=== PATIENT | female | born 1955 ===

== ENCOUNTER 2017-10-18 17:54 | Emergency (ER) | payer OTHER ==
[2017-10-18 18:03] VITALS: BP 158/65; PULSE 64; RESP 16; TEMP 97.8; O2SAT 98
--- NOTE | 2017-10-18 18:27 | ED PDOC ---
HPI: Abdomen Time Seen by Provider: 10/18/17 18:12 Chief Complaint (Nursing): Abdominal Pain Chief Complaint (Provider): Flank Pain History Per: Patient Additional Complaint(s): Patient is a 62 yo female,denies any PMH, c.o right flank pain x 3 days. Pt denies N/V/D. Pt denies medicating for pain at home. No urinary complaints. Past Medical History Reviewed: Nursing Documentation, Vital Signs Vital Signs: Last Vital Signs Temp 97.8 F 10/18/17 18:00 Pulse 64 10/18/17 18:00 Resp 16 10/18/17 18:00 BP 158/65 H 10/18/17 18:00 Pulse Ox 98 10/18/17 18:27 - Medical History PMH: No Chronic Diseases - Surgical History Surgical History: No Surg Hx - Family History Family History: States: No Known Family Hx - Living Arrangements Living Arrangements: With Family - Social History Current smoker - smoking cessation education provided: No Alcohol: None Drugs: Denies - Home Medications Home Medications: Ambulatory Orders Medication Instructions Recorded Cyclobenzaprine [Cyclobenzaprine 10 mg PO TID #20 tab 10/18/17 HCl] Ibuprofen [Motrin] 600 mg PO Q6 #20 tab 10/18/17 Sulfamethoxazole/Trimethoprim 1 tab PO BID 5 Days tab 10/18/17 [Bactrim DS 800 mg-160 mg] - Allergies Allergies/Adverse Reactions: Allergies Allergy/AdvReac Type Severity Reaction Status Date / Time No Known Allergies Allergy Verified 10/18/17 18:02 Review of Systems ROS Statement: Except As Marked, All Systems Reviewed And Found Negative Gastrointestinal: Positive for: Abdominal Pain Physical Exam - Reviewed Nursing Documentation Reviewed: Yes Vital Signs Reviewed: Yes - Physical Exam Appears: Positive for: Well, Non-toxic, No Acute Distress Head Exam: Positive for: ATRAUMATIC, NORMAL INSPECTION, NORMOCEPHALIC Skin: Positive for: Normal Color, Warm, DRY Eye Exam: Positive for: EOMI, Normal appearance, PERRL ENT: Positive for: Normal ENT Inspection Neck: Positive for: Normal, Painless ROM Cardiovascular/Chest: Positive for: Regular Rate, Rhythm Respiratory: Positive for: CNT, Normal Breath Sounds Gastrointestinal/Abdominal: Positive for: Normal Exam, Bowel Sounds, Soft. Negative for: Tenderness Back: Positive for: Normal Inspection, Other (LS paraspinal tenderness). Negative for: L CVA Tenderness, R CVA Tenderness Extremity: Positive for: Normal ROM Neurologic/Psych: Positive for: Alert, Oriented - ECG O2 Sat by Pulse Oximetry: 98 Medical Decision Making Medical Decision Making: Dip (+) blood and leuks Pt medicated with Motrin and Flexeril PO Pt reports feeling improved on re-eval. Stable for discharge Disposition - Clinical Impression Clinical Impression: Back pain - Patient ED Disposition Is Patient to be Admitted: No - Disposition Disposition: Routine/Home Disposition Time: 23:46 Condition: STABLE Prescriptions: Cyclobenzaprine [Cyclobenzaprine HCl] 10 mg PO TID #20 tab Ibuprofen [Motrin] 600 mg PO Q6 #20 tab Sulfamethoxazole/Trimethoprim [Bactrim DS 800 mg-160 mg] 1 tab PO BID 5 Days tab Instructions: Acute Low Back Pain (ED) Forms: [facility] (Lebanese)
[2017-10-18 19:34] LABS: RBC URINE 3 /hpf (0-3); URINE BILIRUBIN NEGATIVE (NEGATIVE); URINE BLOOD SMALL (NEGATIVE); URINE COLOR YELLOW (YELLOW); URINE GLUCOSE (UA) NEG (Normal); URINE KETONE NEGATIVE (NEGATIVE); URINE LEUKOCYTE ESTERASE MOD Leu/uL (Negative); URINE PROTEIN NEGATIVE (NEGATIVE); URINE UROBILINOGEN 0.2-1.0 mg/dL (0.2-1.0); WBC URINE 2 /hpf (0-5)
== END 2017-10-18 21:23 | disposition home or self-care (01) ==
LOC: H.ER 17:54
DX: M54.9 Dorsalgia, unspecified (principal)

== ENCOUNTER 2017-12-21 20:51 | Emergency (ER) | payer OTHER ==
[2017-12-21 21:34] VITALS: BP 169/80; PULSE 74; RESP 16; TEMP 98.8; O2SAT 98
--- NOTE | 2017-12-22 00:45 | ED PDOC ---
Upper Extremity Pain/Injury Time Seen by Provider: 12/21/17 22:42 Chief Complaint (Nursing): Upper Extremity Problem/Injury Chief Complaint (Provider): Right wrist pain, 1 week History Per: Patient History/Exam Limitations: no limitations Onset/Duration Of Symptoms: Days Current Symptoms Are (Timing): Still Present Exacerbating Factor(s): Strenuous Use Of Affected Area Additional Complaint(s): Pt states she has been having some pain in the right wrist for awhile but it has been worse. Pt states the last week it has been worse and she has been having swelling. Pt denies injury. Past Medical History Reviewed: Historical Data, Nursing Documentation, Vital Signs Vital Signs: Last Vital Signs Temp 98.8 F 12/21/17 21:30 Pulse 74 12/21/17 21:30 Resp 16 12/21/17 21:30 BP 169/80 H 12/21/17 21:30 Pulse Ox 98 12/21/17 21:30 - Medical History PMH: No Chronic Diseases - Surgical History Surgical History: No Surg Hx - Family History Family History: States: No Known Family Hx - Living Arrangements Living Arrangements: With Family - Social History Current smoker - smoking cessation education provided: No Alcohol: None - Immunization History Hx Tetanus Toxoid Vaccination: No Hx Influenza Vaccination: No Hx Pneumococcal Vaccination: No - Home Medications Home Medications: Ambulatory Orders Medication Instructions Recorded Cyclobenzaprine [Cyclobenzaprine 10 mg PO TID #20 tab 10/18/17 HCl] Ibuprofen [Motrin] 600 mg PO Q6 #20 tab 10/18/17 Sulfamethoxazole/Trimethoprim 1 tab PO BID 5 Days tab 10/18/17 [Bactrim DS 800 mg-160 mg] Naproxen [Naprosyn] 500 mg PO BID PRN #20 tablet 12/22/17 - Allergies Allergies/Adverse Reactions: Allergies Allergy/AdvReac Type Severity Reaction Status Date / Time No Known Allergies Allergy Verified 10/18/17 18:02 Review of Systems ROS Statement: Except As Marked, All Systems Reviewed And Found Negative Constitutional: Negative for: Fever, Chills Musculoskeletal: Positive for: Other (Right wrist pain) Skin: Positive for: Other Physical Exam - Reviewed Nursing Documentation Reviewed: Yes Vital Signs Reviewed: Yes - Physical Exam Appears: Positive for: Well, Non-toxic, No Acute Distress Head Exam: Positive for: ATRAUMATIC, NORMAL INSPECTION, NORMOCEPHALIC Skin: Positive for: Normal Color, Warm, DRY Eye Exam: Positive for: Normal appearance ENT: Positive for: Normal ENT Inspection Neck: Positive for: Normal Respiratory: Negative for: Accessory Muscle Use, Respiratory Distress Back: Positive for: Normal Inspection Extremity: Positive for: Normal ROM, Swelling (Mild, right wrist ). Negative for: Tenderness, Deformity Neurologic/Psych: Positive for: Alert, Oriented - Laboratory Results Urine POC: Negative - ECG O2 Sat by Pulse Oximetry: 98 Pulse Ox Interpretation: Normal Medical Decision Making Medical Decision Making: Wrist splint applied. Discussed f/u with orthopedics. Disposition - Clinical Impression Clinical Impression: Wrist pain - Patient ED Disposition Is Patient to be Admitted: No - Disposition Referrals: Mona Quinteros MD [Primary Care Provider] - Omi Conteh MD [Medical Doctor] - Disposition: Routine/Home Disposition Time: 00:55 Condition: GOOD Additional Instructions: Ice, elevation. Prescriptions: Naproxen [Naprosyn] 500 mg PO BID PRN #20 tablet PRN Reason: Pain Instructions: Swollen Joint (ED)
--- NOTE | 2017-12-22 10:49 | RAD ---
PROCEDURE: Right Wrist Radiographs. HISTORY: right wrist pain COMPARISON: None. FINDINGS: BONES: No acute fracture. JOINTS: Degenerative changes with large navicular subchondral cyst. SOFT TISSUES: Normal. OTHER FINDINGS: None. IMPRESSION: No demonstrated fracture or dislocation. Degenerative changes.
== END 2017-12-22 01:13 | disposition home or self-care (01) ==
LOC: H.ER 20:51
DX: M25.531 Pain in right wrist (principal)

== ENCOUNTER 2018-07-13 14:56 | Emergency (ER) | payer SELFPAY ==
[2018-07-13 15:04] VITALS: BP 128/68; PULSE 71; RESP 16; TEMP 98.3; O2SAT 99
--- NOTE | 2018-07-13 15:38 | ED PDOC ---
Lower Extremity Pain/Injury Time Seen by Provider: 07/13/18 15:07 Chief Complaint (Nursing): Lower Extremity Problem/Injury Chief Complaint (Provider): Right heel pain History Per: Patient History/Exam Limitations: no limitations Onset/Duration Of Symptoms: Days (x1 month) Current Symptoms Are (Timing): Still Present Additional Complaint(s): Jodee Laird is a 63 year old female, with no significant past medical history, who presents to the emergency department complaining of right heel pain onset for x1 month. Patient states pain worsens when she ambulates. She took Tylenol without relief of symptoms. She denies any fall or injuries. No further medical complaints. PMD: None provided. Past Medical History Reviewed: Historical Data, Nursing Documentation, Vital Signs Vital Signs: Last Vital Signs Temp 98.3 F 07/13/18 15:01 Pulse 71 07/13/18 15:01 Resp 16 07/13/18 15:01 BP 128/68 07/13/18 15:01 Pulse Ox 99 07/13/18 15:01 - Medical History PMH: No Chronic Diseases - Surgical History Surgical History: No Surg Hx - Family History Family History: States: Unknown Family Hx - Immunization History Hx Tetanus Toxoid Vaccination: No Hx Influenza Vaccination: No Hx Pneumococcal Vaccination: No - Home Medications Home Medications: Ambulatory Orders Medication Instructions Recorded Cyclobenzaprine [Cyclobenzaprine 10 mg PO TID #20 tab 10/18/17 HCl] Ibuprofen [Motrin] 600 mg PO Q6 #20 tab 10/18/17 Sulfamethoxazole/Trimethoprim 1 tab PO BID 5 Days tab 10/18/17 [Bactrim DS 800 mg-160 mg] Naproxen [Naprosyn] 500 mg PO BID PRN #20 tablet 12/22/17 - Allergies Allergies/Adverse Reactions: Allergies Allergy/AdvReac Type Severity Reaction Status Date / Time No Known Allergies Allergy Verified 07/13/18 14:59 Review of Systems ROS Statement: Except As Marked, All Systems Reviewed And Found Negative Musculoskeletal: Positive for: Foot Pain (right heel) Physical Exam - Reviewed Nursing Documentation Reviewed: Yes Vital Signs Reviewed: Yes - Physical Exam Appears: Positive for: No Acute Distress Head Exam: Positive for: ATRAUMATIC, NORMAL INSPECTION, NORMOCEPHALIC Skin: Positive for: Normal Color, Warm, Dry Eye Exam: Positive for: Normal appearance Neck: Positive for: Painless ROM Extremity: Positive for: Normal ROM (lower extremities), Tenderness (over posterior heel and plantar aspect). Negative for: Deformity, Swelling Neurologic/Psych: Positive for: Alert, Oriented. Negative for: Motor/Sensory Deficits - ECG O2 Sat by Pulse Oximetry: 99 (RA) Pulse Ox Interpretation: Normal Medical Decision Making Medical Decision Making: Time: 15:07 Initial Impression: Right heel pain Initial Plan: --Motrin tab 600 mg PO --Foot right 3 views routine [RAD] --Heel right [RAD] --Reevaluation 16:54 Heel X-Ray FINDINGS: BONES: Calcaneal enthesophyte. No acute displaced fracture. JOINTS: No dislocation. SOFT TISSUES: Unremarkable. No evidence of radiopaque foreign body. OTHER FINDINGS: None. IMPRESSION: No acute displaced fracture, dislocation, or significant joint effusion identified.If symptoms persist or if there is continued clinical concern, x-ray follow-up in 7-10 days should be considered. Calcaneal enthesophyte. 16:54 Foot X-Ray FINDINGS: BONES: Calcaneal enthesophyte. No acute displaced fracture. JOINTS: No dislocation. SOFT TISSUES: Unremarkable. No evidence of radiopaque foreign body. OTHER FINDINGS: None. IMPRESSION: No acute displaced fracture, dislocation, or significant joint effusion identified.If symptoms persist or if there is continued clinical concern, x-ray follow-up in 7-10 days should be considered. Calcaneal enthesophyte. Scribe Attestation: Documented by Jairo Nick, acting as a scribe for Maylin Dumont PA-C Provider Scribe Attestation: All medical record entries made by the Scribe were at my direction and personally dictated by me. I have reviewed the chart and agree that the record accurately reflects my personal performance of the history, physical exam, medical decision making, and the department course for this patient. I have also personally directed, reviewed, and agree with the discharge instructions and disposition. Disposition - Clinical Impression Clinical Impression: Heel spur - Patient ED Disposition Is Patient to be Admitted: No - Disposition Referrals: Podiatry Clinic [Outside] Disposition: Routine/Home Disposition Time: 18:10 Condition: STABLE Instructions: Heel Spurs Forms: [facility] (Moldovan)
--- NOTE | 2018-07-13 16:56 | RAD ---
PROCEDURE: Right foot radiographs Right heel radiographs HISTORY: pain COMPARISON: None available. FINDINGS: BONES: Calcaneal enthesophyte. No acute displaced fracture. JOINTS: No dislocation. SOFT TISSUES: Unremarkable. No evidence of radiopaque foreign body. OTHER FINDINGS: None. IMPRESSION: No acute displaced fracture, dislocation, or significant joint effusion identified.If symptoms persist or if there is continued clinical concern, x-ray follow-up in 7-10 days should be considered. Calcaneal enthesophyte.
== END 2018-07-13 17:38 | disposition home or self-care (01) ==
LOC: H.ER 14:56
DX: M77.31 Calcaneal spur, right foot (principal)